=== PATIENT | female | born 1945 | race Caucasian/White ===

== ENCOUNTER 2024-03-05 16:17 | Emergency (ER) | payer OTHER, SELFPAY ==
[2024-03-05 16:23] VITALS: BP 130/68
[2024-03-05 16:48] VITALS: BMI 19.3
[2024-03-05] MEDS: LIDOCAINE 4% PATCH 1 PATCH TOPICAL (18:09)
[2024-03-05 18:13] LABS: Urine Albumin 1+ (Neg - Trace); Urine Bilirubin 1+ (Negative); Urine Character Slightly Cloudy (Clear); Urine Color Amber; Urine Glucose 3+ (Negative); Urine Ketone 2+ (Negative); Urine Leukocyte Trace (Negative); Urine Nitrite Positive (Negative); Urine Occult Blood 3+ (Negative); Urine Urobilinogen 3+ (Neg - 1+)
[2024-03-05 18:37] LABS: Urine Bacteria Moderate (Negative)
--- NOTE | 2024-03-05 23:25 | ED.MUSCINJ ---
HPI-Injury
General
Chief Complaint: Fall
Source: patient
Exam Limitations: none
Time Seen by Provider: 03/05/24 16:53
Nursing documentation reviewed up to this point in time: agreed with
History of Present Illness-Injury
Is this injury a work related problem?: No
Is pt an associate of [facility]/[place]?: No
Initial Injury comments:
Patient to ED with complaind of low back pain. States she missed a step and fell down4 steps at home. Denies hittingher head. Complains of low back pain. Brought to ED by son for eval
Past History
Past History
ED Past Medical History: GERD, HTN, Hypercholesterolemia, Renal failure (IgA nephropathy), Seizures and Other (Bck pain, Diverticulitis, )
ED Past Surgical History: Appendectomy, Gynecological (oophorectomy, hysterectomy, bladder lift with sling), Orthopedic (Carpal tunnel release, thumb surgery, Left wrist joint replacement) and Other (cataracts, Tummy tuck)
Social History
Tobacco: Non-smoker
Alcohol: Daily (wine 2 glasses)
Personal:
Living: alone
Employment: Retired
Family History
Family History: Hypertension
Review of Systems
Review of Systems
Allergies reviewed?: Yes
All Other Systems: ROS reviewed and negative except as documented in HPI and ROS
Constitutional: Reports no symptoms
EENT: Reports no symptoms
Respiratory: Reports no symptoms
Cardiac: Reports no symptoms
ABD/GI: Reports no symptoms
Musculoskeletal: Reports back pain (bilateral lower back)
Skin: Reports no symptoms
Neurological: Reports no symptoms
Psychiatric: Reports no symptoms
Musculoskeletal Injury Exam
Musculoskeletal Injury Exam
Bilateral Lower Back:
Pain with Movement?: Moderate
Tender to palpation?: Moderate
Soft tissue swelling?: None
External deformity and angulation?: None
Joint effusion?: None
Contusion?: Moderate
Hematoma-local bleeding into tissue?: None
Strain- Sprain- Tear (Connective tissue injury)?: Moderate
Crepitus with movement?: No
Joint instability?: No
Malalignment/deformity?: No
Range of motion: Limited
Distal skin color and temperature: normal-warm & good color
Capillary Refill: normal
Normal distal neurovascular exam?: Yes
Phy Exam
General Physical Exam
General Presentation: well appearing and mild distress
General age: appears stated age
General Skin: warm and dry
General Habitus: normal
General Mental: alert
General Hydration: appears well hydrated
Cardiovascular Exam
Cardiovascular Exam: regular rate/rhythm and no edema
Pulmonary Exam
Pulmonary Exam: lungs clear and no respiratory distress
Gastrointestinal Exam
Gastrointestinal Exam: normal bowel sounds, non tender, soft, no organomegaly, no pulsatile mass, non distended and no cva tenderness
Neurological Exam
Neurological Exam: alert, oriented x3, CN II-XII intact, no motor deficits, no sensory deficits and speech normal
Musculoskeletal Exam
Musculoskeletal Exam: no edema, neuro vasc intact and other (No neck pain, no extremity pain)
Skin Exam
Skin Exam: normal color, warm/dry and no rash
Psychiatric Exam
Psychiatric Exam: normal mood/affect
Injury Course
Orders/Labs/Results
Orders:
Orders
03/05/24 16:49
CR Lumbar Spine Comp Min 4 Vw* Urgent
Comment:
Reason For Exam: injury, pain
CR Thoracic Spine 3 Views Urgent
Reason For Exam: injury, pain
03/05/24 17:58
Lidocaine [Lidocaine 4% Patch] 1 patch TOPICAL NOW STA
Apply Lidocaine patch(s) to:: low back
03/05/24 18:07
Urinalysis Urgent
Date Specimen was Collected: 03/05/24
Time Specimen was Collected: 18:06
Urine Microscopic Urgent
Date Specimen was Collected: 03/05/24
Time Specimen was Collected: 18:06
Abnormal Lab Results
03/05/24
18:07
Urine Ketones 2+ A
(Negative)
Urine Occult Blood 3+ A
(Negative)
Urine Nitrite Positive A
(Negative)
Urine Bilirubin 1+ A
(Negative)
Urine Urobilinogen 3+ A
(Neg - 1+)
Ur Leukocyte Esterase Trace A
(Negative)
Urine RBC 3-6 A /HPF
(0-2)
Urine WBC 6-10 A /HPF
(0-5)
Urine Bacteria Moderate A
(Negative)
Urine Glucose 3+ A
(Negative)
Urine Albumin 1+ A
(Neg - Trace)
*Radiology
Radiology exam reviewed: radiology read reviewed
*Critical Care Note
Total Time (30-74mins, 75-104mins- exclusive of procedures): Not Applicable
Update Note
Update Note:
Patient dx with UTI by PCP yesterday. Has had 1 dose of augmentin so far. WIll continue antibiotic bid as scheduled, urine culture is pending. WIll discharge home with son, close PCP follow up. Given instructions on s/s to return to ED and she is
agreeable to plan.
ED Attending Note
-
Portions of this chart may have been created with voice recognition software.� Occasional wrong word or��sound alike� substitutions may have occurred due to the inherent limitations of voice recognition software.
Discharge Plan
Departure
Patient Disposition: Home (Routine Discharge)
Date of Disposition: 03/05/24
Time of Disposition: 18:50
Patient with high blood pressure during this ER visit?: No
Condition: Good
Covid-19: Not Applicable
Discharge Problem:
Compression fracture of L1 lumbar vertebra, UTI (urinary tract infection)
Instructions: Vertebral Compression Fracture (DC), Preventing falls in adults, Urinary Tract Infection, Adult ED
Prescriptions:
New
lidocaine 4 % adhesive patch,medicated
1 patch topical DAILY PRN (Reason: Pain) Qty: 15 0RF
No Action
QUINAPRIL HCL
10 mg PO BID
RED YEAST RICE
600 mg PO BID
Centrum Silver Tablet
1 tab PO DAILY
Dry [employer] [place] Benefits Softgel
2 cap PO BID
Keppra:
150 mg PO DAILY
Vitamin B12
1,000 mg PO DAILY
Vitamin C
500 mg PO DAILY
Vitamin D3
2,000 int.units PO DAILY
mupirocin 1 APPLIC ointment
1 applic intranasal DAILY
Patient Comments:
last dose today
Referrals:
David Avitia MD [Primary Care Provider] - Follow up in 2-3 days
Interventions
Interventions:
*Risk Screen - Suicide Last Done: 03/05/24 16:23
*General Assessment Last Done: 03/05/24 16:23
*Neglect/Abuse Screening Last Done: 03/05/24 16:23
ED- Fall Risk Assessment Last Done: 03/05/24 16:41
*Nursing Disposition Last Done: 03/05/24 19:02
ED-Musculoskeletal Assessment Last Done: 03/05/24 16:41
ED- Neurological Assessment Last Done: 03/05/24 16:41
ED-Skin Assessment Last Done: 03/05/24 16:41
Discharge Date and Time
Discharge Date/Time: 03/05/24 19:03
Print Language: CAMBODIAN
== END 2024-03-05 19:03 | disposition home or self-care (01) ==
LOC: EMR 16:17
PROVIDERS: Nurse Practitioner; EMERGENCY PHYSICIAN Emergency Medicine; PRIMARYCARE PHYSICIAN Family Medicine
DX: S32.018A Other fracture of first lumbar vertebra, initial encounter for closed fracture (principal); W10.9XXA Fall (on) (from) unspecified stairs and steps, initial encounter; N39.0 Urinary tract infection, site not specified; E78.00 Pure hypercholesterolemia, unspecified; I10 Essential (primary) hypertension; K21.9 Gastro-esophageal reflux disease without esophagitis
CPT/HCPCS: 99284; 72072; 72110; 81003; 81015

== ENCOUNTER 2024-03-27 10:44 | Emergency (ER) | payer OTHER, SELFPAY ==
[2024-03-27 11:13] VITALS: BP 159/97
[2024-03-27 11:38] LABS: % Basophils 0.6 % (0-2); % Eosinophils 0.3 % (0-6); % Immature Granulocytes 0.3 % (0-0.5); % Lymphocytes 30.4 % (20.5-51.1); % Monocytes 8.3 % (1.7-9.3); % Neutrophils 60.1 % (42.2-75.2); Absolute Lymphocytes 1.9 10^3/uL (1.2-3.4); Absolute Monocytes 0.5 10^3/uL (0.1-0.6); Absolute Neutrophils 3.7 10^3/uL (1.4-6.5); Hematocrit 41.7 % (37.0-47.0); Mean Corp Hgb Conc. 33.6 g/dL (33.0-37.0); Mean Corpuscular Hgb 33.5 pg (27.0-31.0); Mean Corpuscular Volume 99.8 fL (81.0-99.0); Mean Platelet Volume 9.3 fL (7.4-10.4); Nucleated Red Blood Cells % 0 %; Platelet Count 162 10^3/uL (130-400); Red Blood Cell Count 4.18 10^6/uL (4.20-5.40); Red Cell Dist. Width 14.1 % (11.5-14.5); White Blood Cell Count 6.2 10^3/uL (4.8-10.8)
[2024-03-27 11:50] VITALS: BMI 18.8
--- NOTE | 2024-03-27 11:56 | ED.GENMED ---
History of Present Illness
General
Chief Complaint: Flank Pain
Source: patient
Exam Limitations: none
Time Seen by Provider: 03/27/24 11:56
Nursing documentation reviewed up to this point in time: agreed with
History of Present Illness
History of Present Illness:
79-year-old female with a past medical history of epilepsy, IgA nephropathy, diverticulitis presents emergency department with bilateral flank pain and left lower quadrant abdominal pain. Patient states that this started last night and states that
over the course of the night getting progressively worse. Currently rates the pain a 9 out of 10. She denies any nausea or vomiting. She denies any diarrhea. Of note, she has noticed and burning with urination. She did have UTI last week and
she took Bactrim but she still has residual symptoms. She has had no fevers or chills. She is present in the hallway today with her home nurse. She denies any hematuria. She has had past abdominal surgical history of hysterectomy, tummy tuck,
bladder sling.
Past History
Past History
ED Past Medical History: GERD, HTN, Hypercholesterolemia, Renal failure (IgA nephropathy), Seizures and Other (Bck pain, Diverticulitis, )
ED Past Surgical History: Appendectomy, Gynecological (oophorectomy, hysterectomy, bladder lift with sling), Orthopedic (Carpal tunnel release, thumb surgery, Left wrist joint replacement) and Other (cataracts, Tummy tuck)
Social History
Tobacco: Non-smoker
Alcohol: Daily (wine 2 glasses)
Personal:
Living: alone
Employment: Retired
Family History
Family History: Hypertension
Review of Systems
Review of Systems
All Other Systems: ROS reviewed and negative except as documented in HPI and ROS
Phy Exam
Physical Exam
Physical Exam:
General: Patient is well appearing and in no acute distress; non-toxic
Skin: Warm and dry, no rashes or lesions
Head: Normocephalic, atraumatic
Eyes: Sclera non-icteric. EOMs intact.
Cardiac: Regular rate and rhythm, no murmurs
Peripheral Vascular: No lower extremity swelling or edema
Pulm: Normal respiratory effort, no wheezes, rales, or rhonchi
Abdomen: LLQ abdominal tenderness with guarding noted, + CVA tenderness bilaterally
Musculoskeletal: No midline spinal tenderness to palpation
Neuro: CN II-XII intact, no focal neurologic deficits.
Psychiatric: Appropriate mood and affect.
Course
Orders/Labs/Results
Orders:
Orders
03/27/24 11:28
Complete Blood Count/With Diff Urgent
Comprehensive Metabolic Panel Urgent
Lipase Urgent
Comment: ADD
03/27/24 12:09
Iohexol [Omnipaque] See Protocol PO NOW STA
03/27/24 12:10
CT Abd/pel W Iv And Oral Contr Urgent
Comment:
Reason For Exam: LLQ pain
03/27/24 12:19
Add On- LAB Stat
Tests Added?: lipase
03/27/24 12:24
Urinalysis Reflex To Culture Urgent
Date Specimen was Collected: 03/27/24
Time Specimen was Collected: 11:16
Urine Microscopic Reflex Cult Urgent
Urine Culture Urgent
CLAIRE Source: U
Specimen Description:
Date Specimen was Collected: 03/27/24
Time Specimen was Collected: 11:16
03/27/24 16:52
CefTRIAXone [Rocephin] 1,000 mg IV NOW STA
Abnormal Lab Results
03/27/24 03/27/24
11:28 12:24
RBC 4.18 L 10^6/uL
(4.20-5.40)
MCV 99.8 H fL
(81.0-99.0)
MCH 33.5 H pg
(27.0-31.0)
Creatinine 0.4 L mg/dL
(0.6-1.0)
Glucose 126 H mg/dl
(70-99)
AST 39 H U/L
(14-36)
Urine Ketones 3+ A
(Negative)
Ur Occult Blood Reflex 3+ A
(Negative)
Leukocyte Esterase Rfl 2+ A
(Negative)
Urine RBC 7-10 A /HPF
(0-2)
Urine WBC (Reflex) 50-60 A /HPF
(0-5)
Urine Bacteria (Reflex) Moderate A
(Negative)
Urine Glucose 3+ A
(Negative)
Urine Albumin (Reflex) 2+ A
(Neg - Trace)
03/27/24 11:28
03/27/24 11:28
Vital Signs
Initial and Last Documented VS:
Initial Vital Signs
Temp Pulse Resp BP Pulse Ox
98.6 F 99 20 159/97 99
03/27/24 11:13 03/27/24 11:13 03/27/24 11:13 03/27/24 11:13 03/27/24 11:13
Last Documented Vital Signs
Temp Pulse Resp BP Pulse Ox
98.6 F 99 20 148/79 97
03/27/24 11:13 03/27/24 11:13 03/27/24 11:13 03/27/24 17:00 03/27/24 17:32
MDM/Problems Addressed
Differential Diagnosis Includes:
see below
MDM/Problems Addressed:
NUMBER AND COMPLEXITY OF PROBLEMS ADDRESSED AT THE ENCOUNTER
� Chronic conditions affecting care: IgA nephropathy, epilepsey, HTN, HLP
� Acute Exacerbation and/or Progression of Chronic Illness: Blood pressure elevated today but patient did not take her blood pressure medications
� Differential Diagnosis includes: Differentials include pyelonephritis, diverticulitis, nephrolithiasis
AMOUNT AND/OR COMPLEXITY OF DATA TO BE REVIEWED AND ANALYZED
� I performed an independent evaluation of and my interpretation is:
CT:
Laboratory Studies:
Other:
� Review of other/old records: Reviewed previous ER physician documentation from 03/05/2024, patient seen for compression fracture, reviewed ER physician documentation from 07/14/2012, patient seen with alteration of consciousness, possible seizure
� Clinical information was obtained by an independent historian: Nurse present with patient who helps provide history of present illness
� Prescriptions/Medications Considered but not given:
� Further testing considered but not performed:
RISK OF COMPLICATIONS AND/OR MORBIDITY OR MORTALITY OF PATIENT MANAGEMENT
� Social determinants of health affecting care: none
� Discussion with other providers: ER attending
� Escalation of care including admission/observation vs risk of discharge considered:
79-year-old female past medical history IgA nephropathy, hypertension presents to the emergency department today with concerns of flank pain and abdominal pain. Started last night has been getting progressively worse, interfering with patient's
sleep. She took tramadol at home without relief. She denies any hematuria, does note burning with urination. Of note she had a UTI last week took Bactrim no longer taking antibiotic. Will send for CAT scan with IV and oral contrast for further
evaluation, will reassess and obtain lab work.
On reassessment patient continues to be well-appearing and states that her pain has gotten a bit better without intervention. Her CAT scan reveals possible pancreatitis however lipase normal and no epigastric pain, doubt this. Also demonstrates
early mild diverticulitis which I suspect clinically as well since patient has left lower quadrant pain, also she has findings concerning for partial low-grade bowel obstruction however patient has no symptoms of a bowel obstruction and this may
represent findings seen with enteritis. Also demonstrates acute cystitis, patient has been having persistent UTI symptoms and was recently treated for UTI. Urinalysis is concerning for infection. Considering there is evidence of early
diverticulitis and cystitis, will cover with Augmentin to treat both and send urine off for culture. Did give a dose of Rocephin here. Patient stable for discharge concerns she is awake and alert, no change mental status, she has no fever, and she
is very well-appearing
*Critical Care Note
Total Time (30-74mins, 75-104mins- exclusive of procedures): Not Applicable
ED Attending Note
-
Portions of this chart may have been created with voice recognition software.� Occasional wrong word or��sound alike� substitutions may have occurred due to the inherent limitations of voice recognition software.
Discharge Plan
Departure
Patient Disposition: Home (Routine Discharge)
Date of Disposition: 03/27/24
Time of Disposition: 17:05
Patient with high blood pressure during this ER visit?: Yes
Condition: Good
Discharge Problem:
Urinary tract infection, Diverticulitis
Instructions: Urinary tract infections in adults, Diverticulitis, BLOOD PRESSURE
Prescriptions:
New
amoxicillin-pot clavulanate 875-125 mg tablet
1 tab PO BID 10 Days Qty: 20 0RF
No Action
QUINAPRIL HCL
10 mg PO BID
RED YEAST RICE
600 mg PO BID
Centrum Silver Tablet
1 tab PO DAILY
Dry [employer] [place] Benefits Softgel
2 cap PO BID
Keppra:
150 mg PO DAILY
Vitamin B12
1,000 mg PO DAILY
Vitamin C
500 mg PO DAILY
Vitamin D3
2,000 int.units PO DAILY
mupirocin 1 APPLIC ointment
1 applic intranasal DAILY
Patient Comments:
last dose today
lidocaine 4 % adhesive patch,medicated
1 patch topical DAILY PRN (Reason: Pain) Qty: 15 0RF
Referrals:
David Avitia MD [Family Provider] -
Celestino Myrick DO [Active] - Call in 1-3 days for appt
Activity Restrictions/Additional Instructions:
Your urinalysis appears that your UTI has returned and your CT scan shows evidence of bladder infection---please start taking Augmentin. Please take one tablet twice daily for [address] scan also suggests early diverticulitis. This antibiotic
should treat that as well. Please call the attached number to schedule appointment to see computer discovery teacher.
You should receive a call with the results of your urine culture, you may need to switch your antibiotic if your infection is resistant.
PLEASE RETURN TO EMERGENCY DEPARTMENT SHOULD YOU EXPERIENCE ANY ACUTE WORSENING OF YOUR SYMPTOMS, FEVERS OR CHILLS, LACK OF BOWEL MOVEMENTS, INTRACTABLE NAUSEA OR VOMITING, LACK OF FLATULENCE, ALTERED MENTAL STATUS, CHEST PAIN, SHORTNESS OF BREATH,
OR ANY OTHER SIGNS OR SYMPTOMS WORRISOME TO YOU.
Interventions
Interventions:
*Risk Screen - Suicide Last Done: 03/27/24 11:13
*General Assessment Last Done: 03/27/24 11:51
*Neglect/Abuse Screening Last Done: 03/27/24 11:52
ED- Fall Risk Assessment Last Done: 03/27/24 17:48
*ED COVID-19 Vaccine History Last Done: 03/27/24 11:51
*Nursing Disposition Last Done: 03/27/24 17:48
UT-Qvxzcc-Zhyepgqfyu Assessment Last Done: 03/27/24 11:52
ED-Female Genitourinary Assessment Last Done: 03/27/24 11:52
Discharge Date and Time
Discharge Date/Time: 03/27/24 17:49
Print Language: TAJIK
[2024-03-27 12:08] LABS: ALT (SGPT) 25 U/L (0-35); AST (SGOT) 39 U/L (14-36); Albumin 3.9 g/dl (3.5-5.0); Alkaline Phosphatase 115 U/L (38-126); Blood Urea Nitrogen 8 mg/dl (7-17); Calcium 8.8 mg/dl (8.4-10.2); Carbon Dioxide 25 mmol/L (22-30); Chloride 102 mmol/L (98-107); Estimated Creatinine Clearance 54 ml/min; Glucose 126 mg/dl (70-99); Potassium 4.1 mmol/L (3.5-5.1); Sodium 138 mmol/L (135-145); Total Bilirubin 1.2 mg/dl (0.2-1.3); Total Protein 6.6 g/dl (6.3-8.2); eGFR > 60.00
[2024-03-27] MEDS: OMNIPAQUE 50 ML PO (12:29)
[2024-03-27 12:33] LABS: Urine Albumin 2+ (Neg - Trace); Urine Bilirubin Negative (Negative); Urine Character Slightly Cloudy (Clear); Urine Color Yellow; Urine Glucose 3+ (Negative); Urine Ketone 3+ (Negative); Urine Leukocyte 2+ (Negative); Urine Nitrite Negative (Negative); Urine Occult Blood 3+ (Negative); Urine Specific Gravity 1.025 (<1.030); Urine Urobilinogen Negative (Neg - 1+)
[2024-03-27 12:54] LABS: Lipase 112 U/L (23-300)
[2024-03-27 13:21] LABS: Urine Squamous Cell >30 /LPF (Few)
[2024-03-27 13:22] LABS: Urine Bacteria Moderate (Negative); Urine White Cell 50-60 /HPF (0-5)
[2024-03-27] MEDS: ROCEPHIN 1000 MG IV (16:56)
[2024-03-27 16:58] VITALS: BP 138/83
[2024-03-27 17:00] VITALS: BP 148/79
== END 2024-03-27 17:49 | disposition home or self-care (01) ==
LOC: EMR 10:44
PROVIDERS: EMERGENCY PHYSICIAN Emergency Medicine; FAMILY PHYSICIAN Family Medicine
DX: N39.0 Urinary tract infection, site not specified (principal); K57.32 Diverticulitis of large intestine without perforation or abscess without bleeding; G40.909 Epilepsy, unspecified, not intractable, without status epilepticus; N02.B1 Recurrent and persistent immunoglobulin A nephropathy with glomerular lesion; K21.9 Gastro-esophageal reflux disease without esophagitis; I10 Essential (primary) hypertension; E78.00 Pure hypercholesterolemia, unspecified; Z82.49 Family history of ischemic heart disease and other diseases of the circulatory system; Z87.440 Personal history of urinary (tract) infections; Z90.49 Acquired absence of other specified parts of digestive tract; Z90.721 Acquired absence of ovaries, unilateral
CPT/HCPCS: 99283; 96374; 74177; 80053; 81003; 81015; 83690; 85025; 87086; Q9967

== ENCOUNTER 2024-04-02 11:10 | Emergency (ER) | payer OTHER, SELFPAY ==
[2024-04-02 11:12] VITALS: BP 121/74
[2024-04-02 11:33] LABS: % Basophils 0.8 % (0-2); % Eosinophils 0.2 % (0-6); % Immature Granulocytes 0.3 % (0-0.5); % Monocytes 7.2 % (1.7-9.3); % Neutrophils 64.5 % (42.2-75.2); Absolute Basophils 0.1 10^3/uL (0-0.2); Absolute Lymphocytes 1.6 10^3/uL (1.2-3.4); Absolute Monocytes 0.4 10^3/uL (0.1-0.6); Absolute Neutrophils 3.9 10^3/uL (1.4-6.5); Hematocrit 40.8 % (37.0-47.0); Hemoglobin 13.6 g/dL (12.0-16.0); Mean Corp Hgb Conc. 33.3 g/dL (33.0-37.0); Mean Corpuscular Hgb 32.8 pg (27.0-31.0); Mean Corpuscular Volume 98.3 fL (81.0-99.0); Mean Platelet Volume 9.3 fL (7.4-10.4); Nucleated Red Blood Cells % 0 %; Platelet Count 166 10^3/uL (130-400); Red Blood Cell Count 4.15 10^6/uL (4.20-5.40); Red Cell Dist. Width 13.9 % (11.5-14.5)
[2024-04-02 11:45] LABS: ALT (SGPT) 23 U/L (0-35); AST (SGOT) 40 U/L (14-36); Albumin 3.6 g/dl (3.5-5.0); Alkaline Phosphatase 86 U/L (38-126); Blood Urea Nitrogen 7 mg/dl (7-17); Calcium 8.9 mg/dl (8.4-10.2); Carbon Dioxide 30 mmol/L (22-30); Chloride 98 mmol/L (98-107); Glucose 202 mg/dl (70-99); Lipase 126 U/L (23-300); Potassium 3.3 mmol/L (3.5-5.1); Sodium 134 mmol/L (135-145); Total Bilirubin 0.9 mg/dl (0.2-1.3); Total Protein 6.2 g/dl (6.3-8.2); eGFR > 60.00
[2024-04-02 12:04] VITALS: BP 144/77
--- NOTE | 2024-04-02 12:32 | ED.GENMED ---
History of Present Illness
<Miracle Keyes PA-C - Last Filed: 04/02/24 16:36>
General
Chief Complaint: Flank Pain
Source: patient
Exam Limitations: none
Time Seen by Provider: 04/02/24 11:52
Nursing documentation reviewed up to this point in time: agreed with
History of Present Illness
History of Present Illness:
79 y/o F with h/o HTN, UTIs, seizure??, IGA nephropathy
on 03/10 was here after a fall down a few steps
pt had injured her back and had L1 compression fx
at that time she had told the DIRECTOR OF [employer]ATE[employer]IC MARKETING that she had UTI and was already on antibitoics from PCP
pt's UA that day was still positive but she had only had 1 dose of abx so far so she was told to continue
pt then returned on 03/27 for L sided flank/abdominal pain
she had a +UA at that time and said she had already completed a 10 days course of abx
her CT showed possibility of mild divertic as well as mild cystitis and a pancreas inflammation but normal lipase
she was givena nother round of abx, augmentin again
pt is on her 5th day but still complaining o fpain in this L flank region
she has tramadol and has been using that but daughter thinks that the pain should be resolved by now
the patient lives alone and apparently has been mre and more confused which is a secondary issue; the duaghter thinks maybe it has to do with this urine infection
just after this past ER visit, the daughter has been dfilling the patient's meds but the patient does have access to her medications and daughter isn't sure if she is taking extra by accident
Past History
<Miracle Keyes PA-C - Last Filed: 04/02/24 16:36>
Past History
ED Past Medical History: GERD, HTN, Hypercholesterolemia, Renal failure (IgA nephropathy), Seizures and Other (Bck pain, Diverticulitis, )
ED Past Surgical History: Appendectomy, Gynecological (oophorectomy, hysterectomy, bladder lift with sling), Orthopedic (Carpal tunnel release, thumb surgery, Left wrist joint replacement) and Other (cataracts, Tummy tuck)
Social History
Tobacco: Non-smoker
Alcohol: Daily (wine 2 glasses)
Personal:
Living: alone
Employment: Retired
Family History
Family History: Hypertension
Review of Systems
<Miracle eKyes PA-C - Last Filed: 04/02/24 16:36>
Review of Systems
Allergies reviewed?: Yes
All Other Systems: Not applicable
Phy Exam
<Miracle Keyes PA-C - Last Filed: 04/02/24 16:36>
Physical Exam
Physical Exam:
GENERAL: Alert, very comfortable
Neck: supple
CARDIAC: Regular rate and rhythm .
LUNGS: Clear breath sounds bilaterally, no acute respiratory distress, no wheezes/rales/rhonchi
ABDOMEN: Soft, normal bowel sounds, nondistended, no abdominal tendenress, no guarding, no rebound, neg montalvo's
back: nontender midline, slight pain with movement
looks very comfortable
straight leg raise neg
NEUROLOGICAL: Alert and oriented, but forgetful; no focal neuro deficits
SKIN: Warm and dry, skin intact.
PSYCH: Normal and appropriate interaction.
Course
<Miracle Keyes PA-C - Last Filed: 04/02/24 16:36>
Orders/Labs/Results
Orders:
Orders
04/02/24 11:21
Complete Blood Count/With Diff Urgent
Comprehensive Metabolic Panel Urgent
Lipase Urgent
04/02/24 12:17
Straight cath- Treatment ONCE
04/02/24 12:19
Urine Culture Reflexed from UA [Urinalysis Reflex To Culture] Urgent
Date Specimen was Collected: 04/02/24
Time Specimen was Collected: 12:10
Urine Microscopic Reflex Cult Urgent
04/02/24 12:56
CT Abd/pel W Iv And Oral Contr Urgent
Comment:
Reason For Exam: left flank pain x 2 weeks;
Iohexol [Omnipaque] See Protocol PO NOW STA
04/02/24 14:54
CT Head W/o Iv Contrast Urgent
Comment:
Reason For Exam: fall 3 weeks ago, confusion is worse
Abnormal Lab Results
04/02/24 04/02/24
11:21 12:19
RBC 4.15 L 10^6/uL
(4.20-5.40)
MCH 32.8 H pg
(27.0-31.0)
Sodium 134 L mmol/L
(135-145)
Potassium 3.3 L mmol/L
(3.5-5.1)
Creatinine 0.4 L mg/dL
(0.6-1.0)
Glucose 202 H mg/dl
(70-99)
AST 40 H U/L
(14-36)
Total Protein 6.2 L g/dl
(6.3-8.2)
Ur Occult Blood Reflex Trace A
(Negative)
Urine RBC 3-6 A /HPF
(0-2)
Urine Glucose 3+ A
(Negative)
Urine Albumin (Reflex) 1+ A
(Neg - Trace)
04/02/24 11:21
04/02/24 11:21
Vital Signs
Initial and Last Documented VS:
Initial Vital Signs
Temp Pulse Resp BP Pulse Ox
97.7 F 93 18 121/74 96
04/02/24 11:12 04/02/24 11:12 04/02/24 11:12 04/02/24 11:12 04/02/24 11:12
Last Documented Vital Signs
Temp Pulse Resp BP Pulse Ox
97.7 F 93 18 139/75 94
04/02/24 11:12 04/02/24 11:12 04/02/24 11:12 04/02/24 14:00 04/02/24 15:30
<Kyle Dunn, DO - Last Filed: 04/02/24 16:26>
Orders/Labs/Results
Orders:
Orders
04/02/24 11:21
Complete Blood Count/With Diff Urgent
Comprehensive Metabolic Panel Urgent
Lipase Urgent
04/02/24 12:17
Straight cath- Treatment ONCE
04/02/24 12:19
Urine Culture Reflexed from UA [Urinalysis Reflex To Culture] Urgent
Date Specimen was Collected: 04/02/24
Time Specimen was Collected: 12:10
Urine Microscopic Reflex Cult Urgent
04/02/24 12:56
CT Abd/pel W Iv And Oral Contr Urgent
Comment:
Reason For Exam: left flank pain x 2 weeks;
Iohexol [Omnipaque] See Protocol PO NOW STA
04/02/24 14:54
CT Head W/o Iv Contrast Urgent
Comment:
Reason For Exam: fall 3 weeks ago, confusion is worse
Abnormal Lab Results
04/02/24 04/02/24
11:21 12:19
RBC 4.15 L 10^6/uL
(4.20-5.40)
MCH 32.8 H pg
(27.0-31.0)
Sodium 134 L mmol/L
(135-145)
Potassium 3.3 L mmol/L
(3.5-5.1)
Creatinine 0.4 L mg/dL
(0.6-1.0)
Glucose 202 H mg/dl
(70-99)
AST 40 H U/L
(14-36)
Total Protein 6.2 L g/dl
(6.3-8.2)
Ur Occult Blood Reflex Trace A
(Negative)
Urine RBC 3-6 A /HPF
(0-2)
Urine Glucose 3+ A
(Negative)
Urine Albumin (Reflex) 1+ A
(Neg - Trace)
04/02/24 11:21
04/02/24 11:21
Vital Signs
Initial and Last Documented VS:
Initial Vital Signs
Temp Pulse Resp BP Pulse Ox
97.7 F 93 18 121/74 96
04/02/24 11:12 04/02/24 11:12 04/02/24 11:12 04/02/24 11:12 04/02/24 11:12
Last Documented Vital Signs
Temp Pulse Resp BP Pulse Ox
97.7 F 93 18 139/75 94
04/02/24 11:12 04/02/24 11:12 04/02/24 11:12 04/02/24 14:00 04/02/24 15:30
ED Attending Note
<Miracle Keyes PA-C - Last Filed: 04/02/24 16:36>
-
Portions of this chart may have been created with voice recognition software.� Occasional wrong word or��sound alike� substitutions may have occurred due to the inherent limitations of voice recognition software.
<Kyle Dunn DO - Last Filed: 04/02/24 16:26>
ED Attending Note
Patient seen and examined by attending physician: Yes
I performed a history and physical exam of patient and discussed management with resident, I reviewed resident's note and agree with documented findings and plan of care.: Yes
ED Attending Note:
Seen with PA, nontoxic elderly female with flank pain
Discharge Plan
Departure
Patient Disposition: Home (Routine Discharge)
Date of Disposition: 04/02/24
Time of Disposition: 16:33
Patient with high blood pressure during this ER visit?: No
Condition: Fair
Covid-19: Not Applicable
Discharge Problem:
Compression fracture of lumbar vertebra
Instructions: Vertebral Compression Fracture ED, Back Pain
Prescriptions:
No Action
QUINAPRIL HCL
10 mg PO BID
RED YEAST RICE
600 mg PO BID
Centrum Silver Tablet
1 tab PO DAILY
Dry Eye [place] Benefits Softgel
2 cap PO BID
Keppra:
150 mg PO DAILY
Vitamin B12
1,000 mg PO DAILY
Vitamin C
500 mg PO DAILY
Vitamin D3
2,000 int.units PO DAILY
mupirocin 1 APPLIC ointment
1 applic intranasal DAILY
Patient Comments:
last dose today
lidocaine 4 % adhesive patch,medicated
1 patch topical DAILY PRN (Reason: Pain) Qty: 15 0RF
amoxicillin-pot clavulanate 875-125 mg tablet
1 tab PO BID 10 Days Qty: 20 0RF
Referrals:
David Avitia MD [Family Provider] - Follow up in 2-3 days
Activity Restrictions/Additional Instructions:
Your pain is probably from your back compression fracture which can refer pain around to your side and lower abdomen and hip. Your workup here was very reassuring showing that your urine is improved, your CAT scan shows improvement in your
diverticulitis and your kidney function is normal. You do not look to have a kidney infection or kidney stone. You do have some incidental findings on your CAT scan that are stable from last time.
Please follow-up with your family doctor this week. In the meantime make sure that you are having your medications dispensed so you do not get confused. Take Tylenol twice a day for pain, only use the tramadol 2 times a day as needed for severe
pain. Be aware that pain medications can cause some confusion. Please follow-up with your family doctor about physical therapy consultation. Return for any concerns like fever, vomiting, inability to walk, numbness tingling or weakness in your
legs or any concern
Interventions
Interventions:
*Risk Screen - Suicide Last Done: 04/02/24 11:12
*General Assessment Last Done: 04/02/24 11:12
*Neglect/Abuse Screening Last Done: 04/02/24 12:02
*ED COVID-19 Vaccine History Last Done: 04/02/24 11:12
SA-Fjrock-Qguxqogtsf Assessment Last Done: 04/02/24 12:04
ED-Female Genitourinary Assessment Last Done: 04/02/24 12:04
Discharge Date and Time
Print Language: DIVEHI
[2024-04-02 12:45] LABS: Urine Albumin 1+ (Neg - Trace); Urine Bilirubin Negative (Negative); Urine Character Clear (Clear); Urine Color Yellow; Urine Glucose 3+ (Negative); Urine Ketone Negative (Negative); Urine Leukocyte Negative (Negative); Urine Nitrite Negative (Negative); Urine Occult Blood Trace (Negative); Urine Specific Gravity 1.025 (<1.030); Urine Urobilinogen Negative (Neg - 1+)
[2024-04-02 13:00] VITALS: BP 127/79
[2024-04-02] MEDS: OMNIPAQUE 50 ML PO (13:01)
[2024-04-02 13:19] LABS: Urine Calcium Oxalate Crystals Seen
[2024-04-02 14:00] VITALS: BP 139/75
[2024-04-02] MEDS: TYLENOL 650 MG PO (16:40)
== END 2024-04-02 16:47 | disposition home or self-care (01) ==
LOC: EMR 11:10
PROVIDERS: Emergency Medicine; Physician Assistant; EMERGENCY PHYSICIAN Emergency Medicine; FAMILY PHYSICIAN Family Medicine
DX: S32.018A Other fracture of first lumbar vertebra, initial encounter for closed fracture (principal); W10.9XXA Fall (on) (from) unspecified stairs and steps, initial encounter; R10.9 Unspecified abdominal pain; E78.00 Pure hypercholesterolemia, unspecified; I10 Essential (primary) hypertension; K21.9 Gastro-esophageal reflux disease without esophagitis; Z60.2 Problems related to living alone
CPT/HCPCS: 99284; 70450; 74177; 80053; 81003; 81015; 83690; 85025; Q9967